=== PATIENT | male | born 1975 | race Caucasian/White ===

== ENCOUNTER 2020-06-14 07:51 | Emergency (ER) | payer OTHER, SELFPAY ==
[2020-06-14 07:53] VITALS: BP 143/104; PULSE 116; RESP 18; TEMP 37; O2SAT 93; BMI 32.8
[2020-06-14 08:07] VITALS: O2SAT 95
--- NOTE | 2020-06-14 08:14 | ED.DCSUM_ITS ---
- ER Visit Summary Date of Service: 06/14/20 Chief Complaint: Allergic reaction History of Present Illness: The patient is a 45 M who presents with an allergic reaction that began today. Patient states he woke up with hives and itching. Patient states he was having some shortness of breath with this. Patient denies any difficulty swallowing. Patient states he got into a hot shower which seemed to help. Patient states that he called EMS when he felt like he was not getting any better. Patient states that EMS gave him epinephrine and Benadryl. Patient states this is starting to help. Patient denies any new exposures such as new soaps, foods, laundry detergents, fabric softeners, shampoos. Patient denies any difficulty swallowing. Physical Examination: Vital signs are stable. Patient is afebrile. Patient is in no acute distress. Skin is warm dry. There is some diffuse urticaria noted. There are no vesicles or pustules. There are no petechia noted. Oral mucosa is pink and moist. Oropharynx is clear. Airway is patent. Neck is supple. Trachea is midline. There is no JVD or lymphadenopathy. Heart was regular rate and rhythm. Lungs are clear and equal bilaterally. Abdomen is soft. Bowel sounds are normal. There is no tenderness. Cranial nerves II through XII are intact. There are no focal motor or sensory deficits noted. Extremities are intact. There is no calf tenderness or edema. Emergency Department Course and Treatment: Patient was given a dose of prednisone and Pepcid here. Patient will be observed. Patient is feeling better on reevaluation. Patient is given a prescription for prednisone. Patient was instructed to follow-up with his primary care physician in 5 to 7 days. Patient understood and was agreeable with the plan. All questions were answered. Disposition: Discharge home Impression: Allergic reaction This note was generated with [employer] dictation software. It may contain incorrect words, spelling, and punctuation that were not noted in review of the chart prior to signing ED Disposition - Plan for ED Patient: Disposition: Home or Assisted Living Diagnosis: Urticaria Instructions: ED Hives (Adult) Prescriptions: predniSONE tablet 60 mg PO DAILY #15 tab Transmission Status: Pending to [facility]/pharmacy #[id number] Referrals: Mark Prajapati MD [Primary Care Provider] - 5-7 Days
[2020-06-14] MEDS: predniSONE 20 MG Tablet 60 MG PO (08:15)
[2020-06-14] MEDS: Famotidine 200 MG/20 ML MDV 20 MG in 0.9% Normal Saline (Pres. free 8 ML 300 MG IV (09:00)
[2020-06-14 10:15] VITALS: BP 149/87; PULSE 77; RESP 18; O2SAT 97
[2020-06-14 11:11] VITALS: BP 131/89; PULSE 88; RESP 21; O2SAT 94
== END 2020-06-14 11:12 | disposition home or self-care (01) ==
PROVIDERS: Emergency Provider Emergency Medicine; PCP Family Medicine
DX: L50.0 Allergic urticaria (principal)
CPT/HCPCS: 36415; 99285; A4216; J3490